=== PATIENT | female | born 1935 | race Caucasian/White ===

== ENCOUNTER 2017-11-19 13:22 | Emergency (ER) | payer OTHER ==
[~2017-11-19] VITALS: Ht 152.4 cm; Wt 79.5 kg
[~2017-11-19 13:22] MED LIST: ASPIRIN EC325 MG PO; CLOPIDOGREL75 MG PO; ENZYMATIC DIGE1 EACH PO; FUROSEMIDE20 MG PO; LEVOTHYROXINE75 MCG PO; LIPITOR10 MG PO; LISINOPRIL10 MG PO; LO-DOSE ASPIRIN81 M1 PO; LORAZEPAM0.5 MG PO; PLAVIX75 MG PO; SYNTHROID75 MCG PO; VITAMIN D1000 UNIT PO; VITAMIN D3400 UNI1 PO
[2017-11-19] MEDS ORDERED: MOTRIN600 MG PO (16:07)
[2017-11-19 17:00] VITALS: BP 141/84
== END 2017-11-19 17:20 | disposition home or self-care (01) ==
LOC: EME 13:22
PROC: 0RSKXZZ Reposition Left Shoulder Joint, External Approach (ICD-10-PCS; principal; 2017-11-19)
DX: S43.015A Anterior dislocation of left humerus, initial encounter (principal); W01.0XXA Fall on same level from slipping, tripping and stumbling without subsequent striking against object, initial encounter; R41.0 Disorientation, unspecified; Z86.73 Personal history of transient ischemic attack (TIA), and cerebral infarction without residual deficits; I10 Essential (primary) hypertension; E78.5 Hyperlipidemia, unspecified; E03.9 Hypothyroidism, unspecified; Z79.02 Long term (current) use of antithrombotics/antiplatelets; Z79.82 Long term (current) use of aspirin
CPT/HCPCS: 73030; 99281; 99285; J3010